=== PATIENT | male | born 1970 | race Caucasian/White ===

== ENCOUNTER 2018-07-11 22:47 | Emergency (ER) | payer MEDICAID ==
[2018-07-12] MEDS: IBUPROFEN 800 MG TAB PO (00:53)
== END 2018-07-12 01:55 | disposition home or self-care (01) ==
LOC: FTE 22:47
DX: K08.89 Other specified disorders of teeth and supporting structures (principal); Z87.891 Personal history of nicotine dependence
CPT/HCPCS: 99283; Z7502